=== PATIENT | female | born 1985 | race Caucasian/White ===

== ENCOUNTER → 2021-10-01 | Outpatient (CLI) | payer BC ==
[~2021-10-01] MED LIST: DEPRESSION MED; IBUPROFEN 800800 M1 PO; IBUPROFEN 800800 MG PO; ROBAXIN500 MG PO; TRAMADOL 50 MG50 MG PO; XANAX 0.5 MG0.5 M1 PO; [UNRECOGNIZED DRUG - REMARK]
== END ==
LOC: M.CT 09-25 10:00
PROVIDERS: ATTEND Nurse Practitioner
DX: U07.1 COVID-19 (principal); J12.82 Pneumonia due to coronavirus disease 2019; J45.41 Moderate persistent asthma with (acute) exacerbation; Z87.891 Personal history of nicotine dependence